=== PATIENT | male | born 1955 | race Caucasian/White ===

== ENCOUNTER 2023-06-21 17:11 | Outpatient (RCR) | payer OTHER, SELFPAY | END 2023-06-21 23:59 | disposition home or self-care (01) | LOC: RPT 17:11 | PROVIDERS: ATTENDING PHYSICIAN Neurological Surgery; FAMILY PHYSICIAN Internal Medicine Geriatric Medicine | DX: M43.26 Fusion of spine, lumbar region (principal); C79.51 Secondary malignant neoplasm of bone; C80.1 Malignant (primary) neoplasm, unspecified; Z73.6 Limitation of activities due to disability | CPT/HCPCS: 97110; 97112; 97116; 97163 ==

== ENCOUNTER → 2023-08-02 19:16 | Outpatient (REF) | payer OTHER, SELFPAY | LOC: MRI 19:16 | PROVIDERS: ATTENDING PHYSICIAN Physician Assistant Medical; FAMILY PHYSICIAN Internal Medicine Geriatric Medicine | DX: C79.51 Secondary malignant neoplasm of bone (principal); C80.1 Malignant (primary) neoplasm, unspecified; M43.26 Fusion of spine, lumbar region | CPT/HCPCS: 72158; A9575 ==

== ENCOUNTER → 2023-08-22 07:21 | Outpatient (REF) | payer OTHER, SELFPAY | LOC: HWRAD 07:21 | PROVIDERS: ATTENDING PHYSICIAN Internal Medicine Critical Care Medicine; FAMILY PHYSICIAN Internal Medicine Geriatric Medicine | DX: R91.8 Other nonspecific abnormal finding of lung field (principal) | CPT/HCPCS: 71250 ==

== ENCOUNTER 2023-08-28 06:17 | Day surgery (SDC) | payer OTHER, SELFPAY ==
[2023-08-22 09:54] LABS: INR 1.02; PT 13.2 Sec (11.4-14.6)
[2023-08-22 09:55] LABS: APTT 34.1 Sec (23.4-35.0)
[2023-08-28] VITALS (8 sets, daily range): BP systolic 102–116; BP diastolic 68–79; BMI 27.7
[2023-08-28 07:33] LABS: Glucose - Point of Care 121 mg/dl (70-99)
[2023-08-28 09:40] LABS: Glucose - Point of Care 121 mg/dl (70-99)
[2023-08-28 10:42] LABS: Glucose - Point of Care 126 mg/dl (70-99)
== END 2023-08-28 11:30 | disposition home or self-care (01) ==
LOC: SDS 06:17
PROVIDERS: ATTENDING PHYSICIAN Internal Medicine Critical Care Medicine
DX: R91.8 Other nonspecific abnormal finding of lung field (principal); R04.89 Hemorrhage from other sites in respiratory passages
CPT/HCPCS: 31629; 31624; 31623; 31627; 31654; 31652; 88172; 88173; 88305; 36415; 71045; 76000; 82962; 85610; 85730; 87015; 87070; 87102; 87116; 87205; 88112; 88333; 88334; 93005; 94640; C1887

== ENCOUNTER → 2023-10-26 07:44 | Outpatient (REF) | payer OTHER, SELFPAY | LOC: PET 07:44 | PROVIDERS: ATTENDING PHYSICIAN Nurse Practitioner Adult Health | DX: C34.31 Malignant neoplasm of lower lobe, right bronchus or lung (principal) | CPT/HCPCS: 78815; A9552 ==

== ENCOUNTER → 2024-03-01 09:15 | Outpatient (REF) | payer OTHER, SELFPAY | LOC: PET 09:15 | PROVIDERS: ATTENDING PHYSICIAN Internal Medicine Hematology & Oncology | DX: C34.31 Malignant neoplasm of lower lobe, right bronchus or lung (principal) | CPT/HCPCS: 78815; A9552 ==

== ENCOUNTER → 2024-04-30 11:19 | Outpatient (REF) | payer OTHER, SELFPAY | LOC: HWCARD 11:19 | PROVIDERS: ATTENDING PHYSICIAN Internal Medicine Geriatric Medicine; REFERRING PHYSICIAN Internal Medicine Hematology & Oncology | DX: R06.00 Dyspnea, unspecified (principal); R07.89 Other chest pain | CPT/HCPCS: 93005 ==

== ENCOUNTER → 2024-05-03 06:56 | Outpatient (REF) | payer OTHER, SELFPAY ==
[2024-05-03] VITALS (7 sets, daily range): BP systolic 61–128; BP diastolic 67–94
[2024-05-03 07:37] LABS: Glucose - Point of Care 134 mg/dl (70-99)
[2024-05-03] MEDS: ANCEF 10 IV ×2 (08:19)
[2024-05-03 09:30] LABS: Glucose - Point of Care 116 mg/dl (70-99)
== END ==
LOC: RADI 06:56
PROVIDERS: ATTENDING PHYSICIAN Internal Medicine Hematology & Oncology; FAMILY PHYSICIAN Internal Medicine Geriatric Medicine
DX: C34.31 Malignant neoplasm of lower lobe, right bronchus or lung (principal)
CPT/HCPCS: 36561; 76937; 77001; 82962; 99152; 99153; C1788

== ENCOUNTER → 2024-05-16 07:53 | Outpatient (REF) | payer OTHER, SELFPAY | LOC: RCS 07:53 | PROVIDERS: ATTENDING PHYSICIAN Internal Medicine Geriatric Medicine | DX: R07.89 Other chest pain (principal); R06.00 Dyspnea, unspecified | CPT/HCPCS: 93017; 93350 ==

== ENCOUNTER → 2024-07-02 10:09 | Outpatient (REF) | payer OTHER, SELFPAY | LOC: PAVMRI 10:09 | PROVIDERS: ATTENDING PHYSICIAN Psychiatry & Neurology Neurology; FAMILY PHYSICIAN Internal Medicine Geriatric Medicine | DX: M54.16 Radiculopathy, lumbar region (principal); M54.50 Low back pain, unspecified; M96.1 Postlaminectomy syndrome, not elsewhere classified | CPT/HCPCS: 72158; A9575 ==

== ENCOUNTER → 2024-07-26 07:48 | Outpatient (REF) | payer OTHER, SELFPAY | LOC: PET 07:48 | PROVIDERS: ATTENDING PHYSICIAN Internal Medicine Hematology & Oncology | DX: C34.31 Malignant neoplasm of lower lobe, right bronchus or lung (principal) | CPT/HCPCS: 78815; A9552 ==

== ENCOUNTER → 2024-10-16 15:35 | Outpatient (REF) | payer OTHER, SELFPAY | LOC: RAD 15:35 | PROVIDERS: ATTENDING PHYSICIAN Nurse Practitioner Adult Health; FAMILY PHYSICIAN Internal Medicine Geriatric Medicine | DX: D75.1 Secondary polycythemia (principal); Z72.0 Tobacco use; C79.51 Secondary malignant neoplasm of bone; C34.31 Malignant neoplasm of lower lobe, right bronchus or lung; G89.3 Neoplasm related pain (acute) (chronic); C44.90 Unspecified malignant neoplasm of skin, unspecified | CPT/HCPCS: 71260; Q9967 ==

== ENCOUNTER → 2025-02-20 07:37 | Outpatient (REF) | payer OTHER, SELFPAY | LOC: PET 07:37 | PROVIDERS: ATTENDING PHYSICIAN Internal Medicine Hematology & Oncology | DX: C34.31 Malignant neoplasm of lower lobe, right bronchus or lung (principal) | CPT/HCPCS: 78815; A9552 ==